=== PATIENT | female | born 1940 | race Two or more races ===

== ENCOUNTER 2021-06-09 11:00 | Day surgery (SDC) | payer OTHER ==
[~2021-06-09 11:00] MED LIST: CALCIUM500 M1 PO; ECOTRIN81 MG PO; LEVOTHYROXINE25 MCG PO; MACROBID 100 M100 MG PO; NORVASC5 MG PO; ULTRACET PO; ZETIA10 MG PO; [UNRECOGNIZED DRUG - OTHER] PO
== END 2021-06-09 11:40 | disposition home or self-care (01) ==
LOC: CIR.AMB 11:00
PROVIDERS: ATTEND Obstetrics & Gynecology Gynecology
DX: N81.11 Cystocele, midline (principal); N18.6 End stage renal disease; N81.83 Incompetence or weakening of rectovaginal tissue